=== PATIENT | female | born 1970 | race Caucasian/White ===

== ENCOUNTER 2021-03-29 11:22 | Emergency (ER) | payer OTHER, BC ==
[2021-03-29] MEDS ORDERED: Acetaminophen 325 MG TAB ONE (12:57)
[2021-03-29] MEDS ORDERED: diphenhydrAMINE 12.5 MG/5 ML UDCUP ONE (12:57)
[2021-03-29] MEDS ORDERED: Prochlorperazine 10 MG/2 ML VIAL ONE (12:57)
[2021-03-29] MEDS ORDERED: diphenhydrAMINE 50 MG/ML VIAL ONE (12:58)
== END 2021-03-29 15:08 | disposition home or self-care (01) ==
LOC: ERS 11:22
DX: R51.9 Headache, unspecified (principal); R29.700 NIHSS score 0; I10 Essential (primary) hypertension; J45.909 Unspecified asthma, uncomplicated; W01.198A Fall on same level from slipping, tripping and stumbling with subsequent striking against other object, initial encounter; Z79.899 Other long term (current) drug therapy
CPT/HCPCS: 70450; 96365; 96375; J0780; J1200; Q0163

== ENCOUNTER 2022-05-09 08:42 | Emergency (ER) | payer BC ==
[2022-05-09] MEDS ORDERED: Acetaminophen 500 MG TAB ONE (09:11)
[2022-05-09 09:28] LABS: #Eosinphils 0.3 thou/uL (0.0-0.7); #Lymphocytes 1.3 thou/uL (1.20-3.40); #Monocytes 0.8 thou/uL (0.11-0.59); #Neutrophils 13.9 thou/uL (1.40-6.50); %Basophils 0.2 % (0.0-1.0); %Eosinophils 1.5 % (0.0-10.0); %Monocytes 4.9 % (0.0-10.0); %Neutrophils 85.3 % (42.0-75.0); Hemoglobin 13.4 g/dL (12.0-16.0); Mean Corpuscular HGB CONC 33.5 g/dL (32.0-36.0); Mean Corpuscular Hemoglobin 31.6 pg (27.0-31.0); Mean Corpuscular Volume 94.3 fl (78.0-98.0); Mean Platelet Volume 6.5 fL (7.4-10.4); Platelet Count 331 10x3/uL (130-400); Red Blood Cell (RBC) Count 4.23 mill/uL (4.20-5.40); White Blood Cell (WBC) Count 16.3 10x3/uL (4.8-10.8)
[2022-05-09 09:51] LABS: ALT (SGPT) 37 U/L (8-55); AST (SGOT) 19 U/L (5-34); Albumin 4.3 g/dL (3.5-5.0); Alkaline Phosphatase 102 U/L (40-110); Anion Gap 13 mmol/L (10-20); BUN (Urea Nitrogen) 17 mg/dL (9.8-20.1); Bilirubin, Total 0.7 mg/dL (0.2-1.2); Calc. Creatinine Clearance 0 mL/min (70-130); Calcium 9.2 mg/dL (7.8-10.44); Carbon Dioxide 26 mmol/L (22-29); Chloride 105 mmol/L (98-107); Estimated GFR 72; Globulin 2.9 g/dL (2.4-3.5); Glucose 119 mg/dL (70-105); Lipase 22 U/L (8-78); Magnesium 1.9 mg/dL (1.6-2.6); Potassium 3.9 mmol/L (3.5-5.1); Protein, Total 7.2 g/dL (6.0-8.3); Sodium 140 mmol/L (136-145)
[2022-05-09 10:20] LABS: Bilirubin Negative (Negative); Blood, Urine Negative (Negative); Clarity Clear (Clear); Glucose, Urine (Dipstick) Normal (Negative); Ketone, Urine Negative (Negative); Leukocyte Negative Leu/uL (Negative); Nitrite Negative (Negative); Protein, Urine (Dipstick) 10 mg/dL (Neg-Trace); Specific Gravity, Urine 1.025 (1.002-1.036); Urobilinogen Normal mg/dL (Less than 2)
[2022-05-09] MEDS ORDERED: Iopamidol-370 76% 500 ML 1 ML ONE (10:51)
[2022-05-09 11:07] LABS: SARS-CoV-2 NAA Rapid Test Not Detected (NotDetected)
== END 2022-05-09 13:53 | disposition home or self-care (01) ==
LOC: ERS 08:42
DX: R55 Syncope and collapse (principal); J02.9 Acute pharyngitis, unspecified; E86.0 Dehydration; I10 Essential (primary) hypertension; Z79.899 Other long term (current) drug therapy; Z20.822 Contact with and (suspected) exposure to COVID-19
CPT/HCPCS: 36415; 71045; 74177; 80053; 81003; 83690; 83735; 84484; 85025; 87081; 87430; 93005; 94760; 96360; 96361; Q9967